=== PATIENT | male | born 1955 ===

== ENCOUNTER 2022-11-20 16:51 | Inpatient (IN) | payer OTHER ==
[~2022-11-20] VITALS: Ht 193 cm; Wt 107.1 kg
--- NOTE | 2022-11-20 20:12 | NUR ---
HOSPITALIST NOTIFIED OF PT ARRIVAL TO UNIT.
[2022-11-21 04:47] LABS: Hematocrit 32.9 % (37.0-53.0); Mean Corpuscular HGB 29.4 pg (26.0-34.0); Mean Corpuscular HGB Conc 33.4 g/dL (31.5-36.5); Mean Corpuscular Volume 88 fL (80-100); Mean Platelet Volume 9.8 fL (9.1-12.4); Platelet Count 520 K/mm3 (150-400); RDW Coefficient Variation 14.2 % (11.7-14.2); RDW Standard Deviation 45.5 fL (35.1-46.3); Red Blood Cell Count 3.74 M/mm3 (4.30-5.90)
[2022-11-21 05:36] LABS: BAND PERCENT MAN 10 % (0-8); BASOPHILS PERCENT MAN 0 % (0-2); EOSINOPHILS PERCENT MAN 0 % (0-6); LYMPHOCYTES ABSOLUTE MAN 0.75 K/mm3 (0.84-5.20); LYMPHOCYTES PERCENT MAN 4 % (21-46); MONOCYTES ABSOLUTE MAN 0.56 K/mm3 (0.16-1.47); MONOCYTES PERCENT MAN 3 % (4-13); MYELOCYTE ABSOLUTE MAN 0.18 K/mm3 (0.00-0.00); MYELOCYTE PERCENT MAN 1 % (0-0); NEUTROPHILS ABSOLUTE MAN 17.38 K/mm3 (1.96-9.15); SEG NEUTROPHILS PERCENT MAN 82 % (41-73); TOTAL CELLS COUNTED 100
[2022-11-21 05:42] LABS: Albumin, Blood 1.9 g/dL (3.4-5.0); Albumin/Globulin Ratio 0.3 (0.8-1.8); Bilirubin, Total 0.9 mg/dL (0.1-1.0); Bun/Creatinine Ratio 51.9 (12.0-20.0); Calcium, Blood 9.5 mg/dL (8.5-10.1); Creatinine, Blood 1.54 mg/dL (0.60-1.20); Globulin, Blood 5.8 g/dL (2.2-4.0); Potassium, Blood 3.5 mmol/L (3.5-5.5); Total Protein, Blood 7.7 g/dL (6.4-8.2)
--- NOTE | 2022-11-21 07:30 | NUR ---
AM ASSESSMENT PT IN HIS BED AFTER GETTING REPORT FROM NOC RN. PT APPEARS COMFORTABLE AT THAT TIME BUT DOES NOT ANSWER QUESTIONS APPROPRIATELY. PER NOC RN, PODIETRY CONSULT ATTEMPTED TO BE CALLED IN BUT WAS TOLD TO CALL THEIR OFFICE DIRECTLY. WILL CONTACT [employer] MACHINE TENDER PODIETRY TO COMPLETE CONSULT.
--- NOTE | 2022-11-21 07:36 | NUR ---
SHIFT SUMMARY PT A&O X2-3, AND FORGETFUL. BED ALARM ON. MEDICATING FOR PAIN PER EMAR. PT PULLED IV ACCESS X2. VOIDING WITH BEDSIDE URINAL. NPO SINCE 0000. PICTURE TAKEN OF WOUND TO R FOOT AND PLACE IN CHART. CALL LIGHT WITHIN REACH, BUT PT HAS NOT BEEN USING IT.
--- NOTE | 2022-11-21 09:00 | NUR ---
CONFUSION PT IS CONFUSED, ANSWERS SOME QUESTIONS CORRECTLY SUCH NAME AND BUT GIVE NONSENSICAL ANSWERS TO OTHER QUESTIONS. HE IS HAVING VISUAL HALLUCINATIONS AT THIS TIME ASKING "WHY AM I WRAPPED UP IN THIS TOY STRING" WHILE GRABBING AT AIR. PT IS INSISTING ON AMBULATING TO THE BATHROOM, ATTEMPTED TO GET PATIENT TO AGREE TO USE BSC BUT WAS NOT SUCCESSFUL, PT WAS ABLE TO AMBULATE TO THE BATHROOM WITH 2 ASSIST MAINING NEEDING HELP STANDING UP FROM THE BED AND AGAIN STANDING UP OFF THE TOILET. PT ABLE TO VOID UNMEASURED. PT BACK IN BED WITH BED ALARM ON FOR SAFETY.
--- NOTE | 2022-11-21 09:30 | NUR ---
PODIETRY CONSULT DISCUSSED PT CONDITION WITH CRITICAL CARE RN PODIETRY WHO WAS ABLE TO GIVE IMAGING ORDERS AND CAME IN FOR AN ASSESSMENT. REQUESTING ORTHO CONSULT AND ADDITIONAL IMAGING AT THIS TIME.
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
--- NOTE | 2022-11-21 21:16 | NUR ---
BELINGINGS GLASSES, HEARING AIDS, CELL PHONE, AND PAPER WORK TAKEN TO ICU 15. ICU NURSE NOTIFIED OF PTS BELONGING.
[2022-11-22 03:51] LABS: Hematocrit 30.2 % (37.0-53.0); Mean Corpuscular HGB 29.8 pg (26.0-34.0); Mean Corpuscular HGB Conc 33.1 g/dL (31.5-36.5); Mean Corpuscular Volume 90 fL (80-100); Mean Platelet Volume 9.5 fL (9.1-12.4); Platelet Count 558 K/mm3 (150-400); RDW Coefficient Variation 14.5 % (11.7-14.2); RDW Standard Deviation 47.6 fL (35.1-46.3); Red Blood Cell Count 3.36 M/mm3 (4.30-5.90)
--- NOTE | 2022-11-22 03:55 | NUR ---
PT CONTINUES TO BE HYPERTENSIVE DESPITE PRN MEDICATIONS BEING GIVEN. DR LEWIS NOTIFIED. ORDERS GIVEN. SEE EMAR
[2022-11-22 04:25] LABS: Bun/Creatinine Ratio 51.5 (12.0-20.0); Calcium, Blood 8.9 mg/dL (8.5-10.1); Creatinine, Blood 1.3 mg/dL (0.60-1.20)
[2022-11-22 05:52] LABS: BAND PERCENT MAN 3 % (0-8); BASOPHILS PERCENT MAN 0 % (0-2); EOSINOPHILS PERCENT MAN 0 % (0-6); LYMPHOCYTES ABSOLUTE MAN 2.18 K/mm3 (0.84-5.20); LYMPHOCYTES PERCENT MAN 12 % (21-46); METAMYELOCYTE ABSOLUTE MAN 0.18 K/mm3 (0.00-0.00); METAMYELOCYTE PERCENT MAN 1 % (0-0); MONOCYTES PERCENT MAN 0 % (4-13); MYELOCYTE ABSOLUTE MAN 0.18 K/mm3 (0.00-0.00); MYELOCYTE PERCENT MAN 1 % (0-0); NEUTROPHILS ABSOLUTE MAN 15.65 K/mm3 (1.96-9.15); SEG NEUTROPHILS PERCENT MAN 83 % (41-73); TOTAL CELLS COUNTED 100
[2022-11-22 06:01] LABS: Source, Urine Foley catheter
[2022-11-22 06:05] LABS: Appearance, Urine Clear (Clear); Bilirubin, Urine Neg (Neg); Blood, Urine 4+ (Neg); Color, Urine Yellow (P-Yellow); Glucose Qualitative, Urine 3+ (Neg); Ketones, Urine 1+ (Neg); Leukocyte Esterase, Urine 1+ (Neg); Nitrite, Urine Neg (Neg); Protein, Urine 2+ (Neg); Specific Gravity, Urine 1.015 (1.003-1.022); Urobilinogen, Urine NORM (Normal)
[2022-11-22 06:28] LABS: Amorphous Light (0-Heavy); Bacteria Few /hpf; Granular Casts 0-2 /lpf (0); Hyaline Casts 0-2 /lpf (0-2); Squamous Epithelial Cells Few /hpf (Few)
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
--- NOTE | 2022-11-22 16:21 | NUR ---
JUST CAME BY TO SEE PATIENT, THE MINERVA FROM THE RIGHT LEG WOUND WAS REMOVED WITHOUT INCIDENT. PT MADE NO RECOGNITION OF DRAIN BEING REMOVED. IV STARTED IN LEFT FOREARM. PT STILL UNABLE TO ANSWER TO HIS LOCATION.
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
--- NOTE | 2022-11-22 18:31 | NUR ---
AL HAD SOME FRIENDS FROM THE [facility], HIS "BEST FRIENDS" THE ONES HE SEES NEARLY EVERY DAY STOP IN TO VISIT. HE PERKED UP A BIT, HE WAS MORE ALERT, STRONGER VOICED IN RESPONDING TO THEM. THEY BROUGHT A PICKING TABLE WORKER FOR HIS PHONE, ALSO POINTED OUT THAT HE HAS HEARING AIDS AND PICKING TABLE WORKER IN HIS BAG. THAT THIS MAY HELP WITH HIS COMMUNICATION. HE IS BEING MORE COOPERATIVE AND WAS ABLE TO TAKE IN A BIT MORE OF HIS DINNER THAN HIS PREVIOUS MEALS. HE REMAINS WITH LOW GRADE FEVER AT 99.9 TEMPANIC, HIS SKIN IS WARM TO THE TOUCH, HE CONTINUES TO BE RESTLESS AND FIDGETY. NS @ 75ML/HR CONTINUES.
--- NOTE | 2022-11-22 19:37 | NUR ---
ASSUMED CARE OF PT AT 1900 PT RESTING IN BED CONSTANTLY FIDGETING AND PULLING IN CORDS. A/O X1, KNOWS SELF ONLY. RESP- SPO2 >92% ON RA. LSCBT WITH DIMINISHED BASES. CARDIAC- HYPTERTENSIVE SBP 150'S, HR 110'S. GI,- SHARPE DRAINING TO GRAVITY WITH CLEAR/YELLOW URINE. NS RUNNING AT 75 MLS/HR TO RIGHT UPPER ARM. NO OTHER IV'S AT THIS TIME D/T REPORTS OF PT PULLING OUT ALL OTHER LINES. SEE FULL ASSESSMENT FOR FURTHER INFORMATION.
[2022-11-23 03:17] LABS: Hematocrit 31.2 % (37.0-53.0); Hemoglobin 10.3 g/dL (13.5-17.5); Mean Corpuscular HGB 29.7 pg (26.0-34.0); Mean Corpuscular Volume 90 fL (80-100); Mean Platelet Volume 9.4 fL (9.1-12.4); Platelet Count 654 K/mm3 (150-400); RDW Coefficient Variation 14.7 % (11.7-14.2); RDW Standard Deviation 48.5 fL (35.1-46.3); Red Blood Cell Count 3.47 M/mm3 (4.30-5.90); White Blood Cell Count 20.44 K/mm3 (4.00-11.30)
[2022-11-23 03:38] LABS: Albumin, Blood 1.5 g/dL (3.4-5.0); Albumin/Globulin Ratio 0.2 (0.8-1.8); Bilirubin, Total 0.9 mg/dL (0.1-1.0); Calcium, Blood 8.6 mg/dL (8.5-10.1); Creatinine, Blood 0.9 mg/dL (0.60-1.20); Globulin, Blood 6.4 g/dL (2.2-4.0); Potassium, Blood 3.7 mmol/L (3.5-5.5); Total Protein, Blood 7.9 g/dL (6.4-8.2)
[2022-11-23 03:47] LABS: BAND PERCENT MAN 5 % (0-8); BASOPHILS PERCENT MAN 0 % (0-2); EOSINOPHILS PERCENT MAN 0 % (0-6); LYMPHOCYTES ABSOLUTE MAN 1.43 K/mm3 (0.84-5.20); LYMPHOCYTES PERCENT MAN 7 % (21-46); METAMYELOCYTE PERCENT MAN 1 % (0-0); MONOCYTES ABSOLUTE MAN 0.61 K/mm3 (0.16-1.47); MONOCYTES PERCENT MAN 3 % (4-13); MYELOCYTE ABSOLUTE MAN 1.02 K/mm3 (0.00-0.00); MYELOCYTE PERCENT MAN 5 % (0-0); NEUTROPHILS ABSOLUTE MAN 17.16 K/mm3 (1.96-9.15); SEG NEUTROPHILS PERCENT MAN 79 % (41-73); TOTAL CELLS COUNTED 100
--- NOTE | 2022-11-23 05:21 | NUR ---
END OF SHIFT SUMMARY PT DID NOT REST MOST OF THE NIGHT. CONFUSED AND PULLING AT LINES CONSTANTLY. A/O X1, SELF ONLY. RESP- SPO2 >93% ON RA. COUGH SOUNDS WET WHEN LISTENING FROM FAR AWAY. LUNG SOUNDS CLEAR WITH DIM BASES. PT TRIES TO CLEAR BROCHIAL AREA REPEATEDLY, BUT IS WEAK COUGH. CARDIAC- SINUS RHYTHM WITH HR 90'S. SBP 170'S MOST OF THE NIGHT. MEDICATED PER EMAR WITH LITTLE RESULTS. GI,- SHARPE DRAINING TO GRAVITY WITH 2000MLS OF YELLOW/CLEAR URINE OUT THIS SHIFT. NO BM THIS SHIFT. WILL CONTINUE TO MONITOR UNTIL AM RN SHIFT REPORT GIVEN.
--- NOTE | 2022-11-23 09:23 | NUR ---
AL HAS BEEN TRYING TO SLEEP MOST OF THE MORNING, DIDN'T TAKE MUCH FOR BREAK- FAST, TRYING TO GET NEPRO WITH JANAE DOWN HIM. HE IS TRYING TO ANSWER THE DRS WHEN THEY ROUND. HE DID SAY HE "WOULD LIKE TO GET OUT OF HERE FOR A WHILE". IV FLUIDS CONTINUE, ANTIBIOTICS INFUSING, SHARPE WITH GOOD OUTPUT, LEFT FOOT WARM AND PULSE PRESENT. RIGHT STUMP COVERED IN STOCKINETTE.
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
--- NOTE | 2022-11-23 12:55 | NUR ---
OT CAME TO WORK WITH RENATA, HE HAD A DIFFICULT TIME STAYING FOCUSED AND FOL- LOWING DIRECTIONS, HE WAS EXHAUSTED AFTER STANDING UP. HE REMAINS IN THE RE- CLINER, ONLY TAKING IN ABOUT 15% OF HIS LUNCH. HE CONTINUES TO HAVE A COUGH, NON-PRODUCTIVE. COMPLAINS OF BEING COLD. WANTING TO "GET OUT OF HERE".
--- NOTE | 2022-11-23 15:36 | NUR ---
P/T CARLA CAME TO WORK WITH RENATA AND WAS NOT WELL RECEIVED. RENATA SEEMS MORE EXASPERATED AND UPSET THIS AFTERNOON. I ASKED THE CARE COMPANION TO SPEAK WITH HIM.
--- NOTE | 2022-11-23 15:41 | NUR ---
"Spiritual Care | Nurse Referral Pt. is awake in a recliner, and welcomes my visit. Pt. is unsettled by his condition. With patient theraputic listening and a calming presence Pt. eventually displays evidence of trust. Pt. verbalizes that his family is all gone. Listen with empathy, and a pastoral presence. Normalized the patient experience and encouraged the Pt. to consider following through with his PT. The Pt. displayed evidence of understanding. The Pt. declined any further specific spiritual care, but verbalized gratitude for the visit, and invited this 1st pressman on web press to return."
--- NOTE | 2022-11-23 15:47 | NUR ---
SOME OF AL'S FRIENDS FROM [place] CAME TO VISIT AND BROUGHT HIM SOME CLOTHING, SOME SWEATS, UNDERPANTS, T-SHIRTS, SOCKS. HE HAD COME OVER FROM [place] W/O ANY BELONGINGS.
--- NOTE | 2022-11-23 18:22 | NUR ---
FED RENATA HIS DINNER, TAKING IN ABOUT 35%. DRINKING HIS MILK AND WATER INDE- PENDENTLY. ASKED TO GO BACK TO BED. 3 PERSON TRANSFER VIA LIFT BACK TO BED. C/O BEING COLD. AL FELL ASLEEP AND HAS BEEN SLEEPING QUIETLY SINCE. BP REMAINS ELEVATED AT TIMES, ORAL MEDICATIONS GIVEN AND TOLERATED WELL. WILL CONTINUE TO ENCOURAGE WORKING WITH PT/OT, NUTRITION.
--- NOTE | 2022-11-23 22:21 | NUR ---
ASSUMPTION OF CARE/ASSESSMENT: ASSUMED CARE OF PT AT 1900. PT IS ASLEEP IN BED, WAKES TO VERBAL STIMULI. PT IS ABLE TO STATE NAME/SOB ACCURATELY BUT NOT ABLE TO ANSWER ANY OTHER ORIENTING QUESTIONS AT THIS TIME. PT IS ON RA WITH SPO2 94< AND DRY, WEAK COUGH NOTED. PT APPEARS TO BE TAKING SHALLOW BREATHS AND RR 20-22. PT SBP 170'S, NO C/O CHEST PAIN. PT HAS OBESE, NON-TENDER ABD, HYPOACTIVE BS IN ALL QUADRANTS. PT HAS SHARPE CATH IN PLACE THAT IS DRAINING TO GRAVITY. ATTEMPTED TO PLACE PT ON BEDPAN AFTER PT WAS OBSERVED TO BE TOO WEAK TO PIVOT TO BEDSIDE COMMODE WITH THREE STAFF MEMBERS; PT UNABLE TO HAVE BOWEL MOVEMENT ON BEDPAN. PPP X 3, NO PEDAL PULSE IN R. LG R/T RIGHT BKA. PT HAS DECREASED BED MOBILITY AND IS ONLY ABLE TO MOVE RLE SLIGHTLY; REQUIRING MODERATE ASSISTANCE WITH TURNS. PT FEBRILE WITH TEMP AT 100.3; BLANKETS REMOVED AND WILL CONTINUE TO ASSESS. PT TOLERATING PO INTAKE AT THIS TIME. BED LOWERED, CALL LIGHT IN REACH, WILL CONTINUE TO MONITOR UNTIL ONCOMING RN ARRIVES.
[2022-11-24 04:08] LABS: BASOPHILS ABSOLUTE AUTO 0.06 K/mm3 (0.00-0.23); BASOPHILS PERCENT AUTO 0 % (0-2); EOSINOPHILS ABSOLUTE AUTO 0.03 K/mm3 (0.00-0.68); EOSINOPHILS PERCENT AUTO 0 % (0-6); Hematocrit 28.6 % (37.0-53.0); Hemoglobin 9.4 g/dL (13.5-17.5); IMMATURE GRAN ABSOLUTE AUTO 0.79 K/mm3 (0.00-0.10); IMMATURE GRAN PERCENT AUTO 5 % (0-1); LYMPHOCYTES ABSOLUTE AUTO 1.29 K/mm3 (0.84-5.20); LYMPHOCYTES PERCENT AUTO 8 % (21-46); MONOCYTES ABSOLUTE AUTO 0.74 K/mm3 (0.16-1.47); MONOCYTES PERCENT AUTO 5 % (4-13); Mean Corpuscular HGB 29.7 pg (26.0-34.0); Mean Corpuscular HGB Conc 32.9 g/dL (31.5-36.5); Mean Corpuscular Volume 90 fL (80-100); Mean Platelet Volume 9.4 fL (9.1-12.4); NEUTROPHILS ABSOLUTE AUTO 13.01 K/mm3 (1.96-9.15); NEUTROPHILS PERCENT AUTO 82 % (41-73); Platelet Count 600 K/mm3 (150-400); RDW Coefficient Variation 14.6 % (11.7-14.2); RDW Standard Deviation 48.6 fL (35.1-46.3); Red Blood Cell Count 3.17 M/mm3 (4.30-5.90); White Blood Cell Count 15.92 K/mm3 (4.00-11.30)
[2022-11-24 04:24] LABS: Bun/Creatinine Ratio 36.5 (12.0-20.0); Calcium, Blood 8.3 mg/dL (8.5-10.1); Creatinine, Blood 0.8 mg/dL (0.60-1.20); Potassium, Blood 3.1 mmol/L (3.5-5.5)
--- NOTE | 2022-11-24 05:58 | NUR ---
SHIFT SUMMARY: NO ACUTE CHANGES OVERNIGHT. PT NEURO STATUS AND SPEECH SLOWLY IMPROVED THROUGHOUT THE SHIFT. PT SLEPT FOR THE MAJORITY OF THE NIGHT. GOOD URINE OUTPUT FROM SHARPE. LOW POTASSIUM AT AM LAB DRAW; 40 MEQ KCL GIVEN ORALLY. BED LOWERED, CALL LIGHT IN REACH, WILL CONTINUE TO MONITOR.
--- NOTE | 2022-11-24 11:55 | NUR ---
TRANSFER TO MEDICAL REPORT GIVEN VIA PHONE. ALL QUESTIONS ANSWERED. PT TAKEN ROOM 354 VIA BED. ALL PT BELONGINGS AND MEDS SENT WITH PT.
--- NOTE | 2022-11-24 14:23 | NUR ---
PATIENT IS ALERT AND RESPONDS TO VERBAL STIMULI. HE IS CONFUSED AT TIMES ATLEAST IT TAKES HIM A LITTLE BIT TO FIGURE OUT WHERE HE IS AND WHY HE IS HERE. PATIENT JUST TOLD THIS RN THAT HE'S NOT IN [place] BUT WHEN PRESSED ON WHERE HE IS IF HE'S NOT IN [place] HE SAID THAT HE IS IN [place]. RIGHT BKA INSCISION SITE HAS NO REDNESS OR SIGNIFICANT DRAINAGE. PATIENT'S CHEST APPEARED DIAPHORETIC, PATIENT STATED HE FELT WARM. ORAL TEMPERATURE SHOWED 98.3 DEGREES FARENHEIGHT.
--- NOTE | 2022-11-25 04:48 | NUR ---
SHIFT SUMMARY NOC PT IS A/O X 2-3. PT RESPONDS TO VERBAL AND TACTILE STIMULI. HE IS CONFUSED/FORGETFUL AT TIMES AND TAKES A FEW MOMENTS TO REORIENT TO WHERE AND WHY HE IS IN HOSPITAL. HE IS P/O DAY 4 RBKA WHICH HAS NO S/S OF INFECTION. DRESSING WAS CHANGED BY DR GIFFORD DURING DAY. PT IS ON ABX FOR TX OF INFECTION. PT ON TELE AT SINUS RHYTHM @ 90 BPM. PT HAS SHARPE DRAINING HIGH OUTPUT OF CLEAR YELLOW URINE. PT HAS NS INFUSING @ 75 MLS. PT HAD LOW POTASSIUM 3.1 AND MG 1.4 WITH REPLACEMENTS. AWAITING AM LABS FOR FURTHER ACTION. PT IS CURRENTLY RESTING WITH BED IN LOWEST POSITION AND CALL LIGHT WITHIN REACH. TM.
[2022-11-25 05:01] LABS: BASOPHILS ABSOLUTE AUTO 0.04 K/mm3 (0.00-0.23); BASOPHILS PERCENT AUTO 0 % (0-2); EOSINOPHILS ABSOLUTE AUTO 0.06 K/mm3 (0.00-0.68); EOSINOPHILS PERCENT AUTO 0 % (0-6); Hematocrit 30.1 % (37.0-53.0); Hemoglobin 9.7 g/dL (13.5-17.5); IMMATURE GRAN ABSOLUTE AUTO 0.56 K/mm3 (0.00-0.10); IMMATURE GRAN PERCENT AUTO 4 % (0-1); LYMPHOCYTES ABSOLUTE AUTO 1.34 K/mm3 (0.84-5.20); LYMPHOCYTES PERCENT AUTO 10 % (21-46); MONOCYTES ABSOLUTE AUTO 0.68 K/mm3 (0.16-1.47); MONOCYTES PERCENT AUTO 5 % (4-13); Mean Corpuscular HGB 29.8 pg (26.0-34.0); Mean Corpuscular HGB Conc 32.2 g/dL (31.5-36.5); Mean Corpuscular Volume 92 fL (80-100); Mean Platelet Volume 9.6 fL (9.1-12.4); NEUTROPHILS ABSOLUTE AUTO 10.89 K/mm3 (1.96-9.15); NEUTROPHILS PERCENT AUTO 80 % (41-73); Platelet Count 608 K/mm3 (150-400); RDW Coefficient Variation 14.3 % (11.7-14.2); RDW Standard Deviation 48.7 fL (35.1-46.3); Red Blood Cell Count 3.26 M/mm3 (4.30-5.90); White Blood Cell Count 13.57 K/mm3 (4.00-11.30)
[2022-11-25 05:46] LABS: Bun/Creatinine Ratio 27.5 (12.0-20.0); Calcium, Blood 8.2 mg/dL (8.5-10.1); Creatinine, Blood 0.84 mg/dL (0.60-1.20); Potassium, Blood 3.4 mmol/L (3.5-5.5)
--- NOTE | 2022-11-25 17:58 | NUR ---
SHIFT SUMMARY: NO ACUTE EVENTS. GOT IN TO RECLINER FOR DINNER USING CEILING LIFT. IS REQUESTING TO USE BR INSTEAD OF URINAL/BEDPAN; WHEN ASKED HOW WE WOULD DO THAT HE STATED "WITH MY ARMS." DOES NOT REALIZE THAT HE WILL NEED EXTENSIVE THERAPY AND TRAINING ON TRANSFERS. TELEMETRY DISCONTINUED WELL SHARPE. MEDICATED FOR PAIN PER PATEINT REQUEST. LUNG SOUNDS COARSE THROUGHOUT, MOIST. POTASSIUM REPLACED. BLOOD CULTURES NGTD.
--- NOTE | 2022-11-26 05:38 | NUR ---
SHIFT SUMMARY AOX2-SELF, PLACE. FORGETFUL & MORE CONFUSED @HS THEN THIS MORNING. PT WAS UNABLE TO TELL ME WHY HE WAS IN THE HOSPITAL LAST NIGHT BUT COULD TELL ME THIS AM IT WAS BECAUSE OF HIS LEG. VSS. POD 5-R BKA, DENIES ANY PAIN IN STUMP. DRESSING IS C/D/I, NO DRAINAGE NOTED. DENIES N/V OR DYSPNEA. DOES REPORT 10/10 LOW BACK PAIN c REPOSITIONING, MEDICATED 1X c 5MG OXYCODONE & PT ABLE TO REST WELL T/O NIGHT. SHARPE REMOVED LAST NIGHT JUST BEFORE SHIFT CHANGE, PT UNABLE TO VOID IN ATTENDS OR URINAL T/O NIGHT. BLADDER SCAN THIS AM SHOWED >1041ML, INFORMED DR LEWIS & HE ORDERED A 1x STRAIGHT CATH, GOT 1025ML DARK ORANGE URINE. CALL LIGHT & BED ALARM IN PLACE. WILL MONITOR.
[2022-11-26 06:45] LABS: BASOPHILS ABSOLUTE AUTO 0.03 K/mm3 (0.00-0.23); BASOPHILS PERCENT AUTO 0 % (0-2); EOSINOPHILS ABSOLUTE AUTO 0.07 K/mm3 (0.00-0.68); EOSINOPHILS PERCENT AUTO 1 % (0-6); Hematocrit 28.8 % (37.0-53.0); Hemoglobin 9.3 g/dL (13.5-17.5); IMMATURE GRAN ABSOLUTE AUTO 0.29 K/mm3 (0.00-0.10); IMMATURE GRAN PERCENT AUTO 3 % (0-1); LYMPHOCYTES ABSOLUTE AUTO 1.59 K/mm3 (0.84-5.20); LYMPHOCYTES PERCENT AUTO 15 % (21-46); MONOCYTES ABSOLUTE AUTO 0.59 K/mm3 (0.16-1.47); MONOCYTES PERCENT AUTO 6 % (4-13); Mean Corpuscular HGB 29.6 pg (26.0-34.0); Mean Corpuscular HGB Conc 32.3 g/dL (31.5-36.5); Mean Corpuscular Volume 92 fL (80-100); Mean Platelet Volume 9.5 fL (9.1-12.4); NEUTROPHILS ABSOLUTE AUTO 7.86 K/mm3 (1.96-9.15); NEUTROPHILS PERCENT AUTO 75 % (41-73); Platelet Count 550 K/mm3 (150-400); RDW Coefficient Variation 14.3 % (11.7-14.2); Red Blood Cell Count 3.14 M/mm3 (4.30-5.90); White Blood Cell Count 10.43 K/mm3 (4.00-11.30)
[2022-11-26 07:01] LABS: Bun/Creatinine Ratio 30.8 (12.0-20.0); Calcium, Blood 8.4 mg/dL (8.5-10.1); Creatinine, Blood 0.81 mg/dL (0.60-1.20); Potassium, Blood 3.5 mmol/L (3.5-5.5)
--- NOTE | 2022-11-26 18:56 | NUR ---
SHIFT SUMMARY: NO ACUTE EVENTS. POD 5 S/P R BKA FROM OSTEOMYELITITS AND GANGRENE OF R FOOT. DR. GIFFORD SAW PT AND CHANGED DRESSING TODAY. C/O CHRONIC LOW BACK PAIN, MEDICATED PER EMAR, MAKES BED MOBILITY DIFFICULT FOR HIM. UNABLE TO VOID SPONTANEOUSLY IN URINAL; BLADDER SCAN SHOWED 600 ML IN BLADDER, STRAIGHT CATH X 1 FOR 550 ML CLEAR CONCENTRATED YELLOW URINE. STARTED ON TAMSULOSIN AND METOPROLOL THIS EVENING. APPETITE GOOD.
[2022-11-26] MEDS ORDERED: ZESTRIL40 M1 PO (22:06)
[2022-11-26] MEDS ORDERED: GLUCOPHAGE1000 M1 PO (22:06)
[2022-11-26] MEDS ORDERED: BACTRIM DS TAB1 EAC6 PO (22:07)
[2022-11-26] MEDS ORDERED: DOXY100 PO (22:10)
[2022-11-26] MEDS ORDERED: INSULIN 70/30 SC (22:10)
[2022-11-26] MEDS ORDERED: PREDNISOLONE ACE5 ML BOTHEYES (22:12)
[2022-11-26] MEDS ORDERED: SILDENAFIL CIT100 MG PO (22:13)
[2022-11-26] MEDS ORDERED: SUMA6I SC (22:14)
[2022-11-26] MEDS ORDERED: TRAZ100 PO (22:14)
[2022-11-26] MEDS ORDERED: BETASEPT118 M7 TOP (22:16)
[2022-11-26] MEDS ORDERED: TIMO.5OPSO BOTHEYES (22:16)
--- NOTE | 2022-11-27 00:45 | NUR ---
PT HAS BEEN VOIDING APPROX 100-300MLS AT A TIME AND HAS HAD A COUPLE EPISODES OF URINARY INCONTINENCE W/ATTENDS CHANGED PRN BUT HE STILL C/O LOWER ABDO DISCOMFORT AND TENDERNESS WHEN STAFF PALPATE BLADDER. HE IS UNABLE TO DISSOCIATE WHETHER SENSATION IS BOWEL OR BLADDER SO ATTEMPTED TO USE BEDPAN W/O SUCCESS. BLADDER SCAN PERFORMED AND SHOWED >1000 MLS RETAINED JUST AFTER VOIDING 400 MLS. MADE AWARE W/INSTRUCTION RECIEVED TO STRAIGHT CATH NOW THEN HAVE DAY MD REEVALUATE POSSIBLE NEED FOR INDWELLING CATH IF RETENTION ISSUES PERSIST. 1ST DOSE FLOMAX WAS RECIEVED ON DAY SHIFT. ST CATH PERFORMED W/14FR COUDE AND STERILE TECHNIQUE MAINTAINED. APPROX 110O MLS URINE OUTPUT OBTAINED THUS FAR AND CATH IS STILL DRAINING BUT PT REPORTS RELIEF IN ABDO DISCOMFORT. WCTM FOR ADDITIONAL S/S RETENTION AND NOTIFY MD NEEDED.
--- NOTE | 2022-11-27 02:05 | NUR ---
PT'S ST.CATH WAS CONNECTED TO A DRAINAGE BAG D/T PT NOT WANTING IT REMOVED UNTIL DISCOMFORT TO ABDO WAS FULLY RESOLVED. IT ALSO CONT'D TO PUT OUT A SIGNIFICANT AMT OF URINE SO WAS LEFT IN PLACE FOR APPROX 1.5 HOURS WHILE HIS BLADDER EMPTIED. WCTM FOR S/S RETENTION.
--- NOTE | 2022-11-27 06:28 | NUR ---
SUMMARY: PT A/OX3 BUT IS FORGETFUL AT TIMES AND OCCASIONALLY MAKES BIZARRE COMMENTS SEEMINGLY UNRELATED TO TOPIC OF CURRENT CONVERSATION. REMINDERS PROVIDED AND CLARIFICATION OBTAINED PRN. BED ALARM ON FOR POSSIBLE CONFUSION AND/OR IMPULSIVITY THOUGH PT MADE NO ATTEMPTS OOB THIS SHIFT. HE'S POD 6 FOR S/P R.BKA W/R.STUMP DX AND SOCK INTACT, DX CHANGED BY 11/26/22. LEGS KEPT ELEVATED ON PILLOWS FOR SLIGHT SWELLING. BED MOBILITY REMAINS DIFFICULT D/T CHRONIC SEVERE BACK PAIN W/OXYCODONE RECIEVED PER EMAR FOR TOLERABLE RELIEF. HE VOIDED SPONTANEOUSLY AND HAD URINARY INCONTINENCE AT BEGGINING OF SHIFT BUT REPORTED SIGNFICANT LOWER ABDO DISCOMFORT SO BLADDER SCAN WAS PERFORMED. >1000MLS RETAINED POST VOID AND ST.CATH WAS RX'D AND PERFORMED. CATH WAS LEFT IN PLACE FOR APPROX 1.5 HOURS PER PT REQUEST TO RELIEVE DISTENSION/DISCOMFORT AND D/T LARGE AMT OF GRADUAL UO. HE HASN'T VOIDED SINCE EMPTYING BLADDER OF APPROX 1700ML CATHETER OUTPUT. FLOMAX STARTED ON DAY SHIFT BUT DAY MD MAY NEED TO RE-EVALUATE POSSIBLE NEED FOR IUC. NO ACUTE CHANGES, VSS/AFEBRILE. WCTM AND REPORT TO DAY RN.
--- NOTE | 2022-11-27 20:06 | NUR ---
SHIFT SUMMARY PT A&O X 4 THOUGH CAN BE FORGETFUL, REORIENTS WELL. VSS. JESÚS DRSYUNIOR CHANGED BY DR. GIFFORD. REMAINS C/D/I. PT PARTICIPATED WITH PT TODAY. MEDICATED FOR C/O BACK PAIN PER EMAR. USES URINAL INDEPENDENTLY. AT END OF SHIFT BLADDER SCANNED FOR >999MLS REMAIN IN BLADDER POST VOID. REPORTED TO NOC SHIFT RN. PT LIKELY NEEDS AN INDWELLING CATH. IV INTACT & PATENT. IS PLEASANT & COOPERATIVE WITH ALL CARE. WILL LIKELY NEED REHAB UPON DC.
--- NOTE | 2022-11-27 22:40 | NUR ---
PT VOIDED APPROX 200 MLS AND HAD SM.URINARY INCONTINENCE BUT CONT'D TO REPORT LOWER ABDO DISCOMFORT AND DISTENSION. BLADDER SCAN PERFORMED AND PVR SHOWED >999 MLS RETAINED. HE'S BEEN RETAINING AND UNABLE TO FULLY EMPTY BLADDER DESPITE COMMENCING FLOMAX AND VOIDING SM.AMOUNTS. INTERMITTENT ST.CATHS HAVE BEEN PERFORMED SINCE POST OP SHARPE WAS DC'D 11/25/22. MADE AWARE AND INSTRUCTED TO PLACE INDWELLING CATHETER. 14FR COUDE WAS PLACED W/STERILE TECHNIQUE MAINTAINED AND 1825 MLS UO OBTAINED VIA SHARPE CATH. URINE SPECIMEN OBTAINED AND SENT PER PROTOCOL, AWAITING RESULTS. ATTENDS CHANGED, DIANE CARE COMPLETED, MEPILEX APPLIED TO PINK COCCYX AND PT WAS REPOSITIONED/FLOATED ON PILLOWS FOR IMPROVED COMFORT. CALL LIGHT IN REACH AND BED ALARM ON. WCTM.
[2022-11-27 22:48] LABS: Source, Urine Foley catheter
[2022-11-27 23:07] LABS: Appearance, Urine Clear (Clear); Bilirubin, Urine Neg (Neg); Blood, Urine 2+ (Neg); Color, Urine Yellow (P-Yellow); Glucose Qualitative, Urine 4+ (Neg); Ketones, Urine Neg (Neg); Leukocyte Esterase, Urine Neg (Neg); Nitrite, Urine Neg (Neg); Protein, Urine 2+ (Neg); Specific Gravity, Urine 1.015 (1.003-1.022); Urobilinogen, Urine NORM (Normal)
[2022-11-27 23:21] LABS: Bacteria Rare /hpf; Hyaline Casts 0-2 /lpf (0-2); Squamous Epithelial Cells Rare /hpf (Few); White Blood Cells, Urine 0-2 /hpf (0-5)
[2022-11-28 05:19] LABS: BASOPHILS ABSOLUTE AUTO 0.05 K/mm3 (0.00-0.23); BASOPHILS PERCENT AUTO 1 % (0-2); EOSINOPHILS ABSOLUTE AUTO 0.05 K/mm3 (0.00-0.68); EOSINOPHILS PERCENT AUTO 1 % (0-6); Hematocrit 28.8 % (37.0-53.0); Hemoglobin 9.1 g/dL (13.5-17.5); IMMATURE GRAN ABSOLUTE AUTO 0.16 K/mm3 (0.00-0.10); IMMATURE GRAN PERCENT AUTO 2 % (0-1); LYMPHOCYTES ABSOLUTE AUTO 2.29 K/mm3 (0.84-5.20); LYMPHOCYTES PERCENT AUTO 23 % (21-46); MONOCYTES ABSOLUTE AUTO 0.55 K/mm3 (0.16-1.47); MONOCYTES PERCENT AUTO 6 % (4-13); Mean Corpuscular HGB 29.2 pg (26.0-34.0); Mean Corpuscular HGB Conc 31.6 g/dL (31.5-36.5); Mean Corpuscular Volume 92 fL (80-100); Mean Platelet Volume 10.1 fL (9.1-12.4); NEUTROPHILS PERCENT AUTO 69 % (41-73); Platelet Count 598 K/mm3 (150-400); RDW Coefficient Variation 13.9 % (11.7-14.2); Red Blood Cell Count 3.12 M/mm3 (4.30-5.90)
--- NOTE | 2022-11-28 05:28 | NUR ---
SUMMARY: PT A/OX3 BUT CAN BE FORGETFUL AT TIMES AND REORIENTS QUICKLY W/REMINDERS. BED ALARM ON FOR FALL RISK AND CALL LIGHT IN REACH. SUSANAA DX AND STUMP SOCK C/D/I, CHANGED DX ON DAY SHIFT. HE CONT'D TO VOID AT TIMES T/O DAY SHIFT W/OCC URINARY INCONTINENCE BUT RETENTION/INABILITY TO EMPTY BLADDER PERSISTED. PT HAD >999MLS PVR ON BLADDER SCAN TONIGHT AFTER VOIDING 200MLS SO RX'D IUC. 14FR COUDE PLACED TO GRAVITY W/APPROX 1800MLS UO EMPTIED PER SHARPE UPON INSERTION. HE WAS MEDICATED W/PRN OXYCODONE FOR TOLERABLE RELIEF OF BACK PAIN AND TURN SCHEDULE WAS MAINTAINED. MEPILEX PLACED TO PINK COCCYX FOR SBD PREVENTION AND PILLOWS UTILIZED TO FLOAT BUTTOCKS AND BLE'S. NO ACUTE CHANGES, VSS/AFEBRILE. WCTM/REPORT TO DAY RN.
[2022-11-28 05:54] LABS: Bun/Creatinine Ratio 26.8 (12.0-20.0); Calcium, Blood 8.7 mg/dL (8.5-10.1); Creatinine, Blood 0.86 mg/dL (0.60-1.20); Potassium, Blood 3.9 mmol/L (3.5-5.5)
--- NOTE | 2022-11-28 10:56 | NUR ---
Pt. is awake in bed and welcomes my visit. Pt. is generally pleasant. Rapport is re-esteblished. Pt. seems a little unsettled by his progress, but verbalizes that he is motivated to do what he can to be able to discharge. Listen with empathy and an encouraging presence. Pt. declined any additional spiritual care, but verbalized gratitude for the visit.
[2022-11-28 17:43] LABS: Source, Urine Foley catheter
[2022-11-28 17:48] LABS: Appearance, Urine Clear (Clear); Bilirubin, Urine Neg (Neg); Blood, Urine 1+ (Neg); Color, Urine Yellow (P-Yellow); Glucose Qualitative, Urine 4+ (Neg); Ketones, Urine Neg (Neg); Leukocyte Esterase, Urine Neg (Neg); Nitrite, Urine Neg (Neg); Protein, Urine 1+ (Neg); Urobilinogen, Urine NORM (Normal)
[2022-11-28 18:10] LABS: Bacteria Few /hpf; Red Blood Cells, Urine Not Seen /hpf (0-2); Squamous Epithelial Cells Not Seen /hpf (Few)
--- NOTE | 2022-11-28 19:39 | NUR ---
SHIFT SUMMARY A&O X 4 THOUGH CAN BE FORGETFUL AND DOESN'T ALWAYS APPROPRIATELY TRACK WITH CONVERSATION. VSS. MEDICATED FOR C/O PAIN PER EMAR WITH GOOD RESULTS. F/C DRAINING YELLOW URINE. UA COLLECTED AND SENT. IV INTACT & PATENT. GOT PT UP TO RECLINER WITH LIFT. SAT UP FOR MOST OF THE AFTERNOON. PLACED BACK IN BED JUST BEFORE CHANGE OF SHIFT. APPETITE IS GOOD. JESÚS STEWART REMAINS C/D/I. CHANGED YESTERDAY BY DR. GIFFORD. IS PLEASANT & COOPERATIVE WITH ALL CARE. POSSIBLE PLAN IS LIKELY PLACEMENT UPON DC FROM HOSPITAL.
--- NOTE | 2022-11-29 04:57 | NUR ---
A&O X 4, BUT SLOW TO RESPOND TO QUESTIONS AND CAN BE FORGETFUL. MEDICATED FOR C/O PAIN EARLIER IN SHIFT WITH GOOD RESULTS. SHARPE IS DRAINING CLEAR YELLOW URINE. DRESSING REMAINS CLEAN DRY AND INTACT. PLEASANT AND COOPERATIVE WITH CARE. WILL CONTINUE TO MONITOR AND PROVIDE CARE THROUGHOUT SHIFT AND REPORT TO ONCOMING NURSE.
--- NOTE | 2022-11-29 18:08 | NUR ---
PATIENT IS ALERT WITH MOMENTS OF CONFUSION. BLOOD SUGARS HAVE BEEN HIGH, NEEDING COVERAGE. STAS HAD A BATH THIS SHIFT AND WOUND CARE WAS DONE. HE IS WAITING PLACEMENT. THERE ARE NO NEW CONCERS. HE IS STILL HAVING THE PAIN IN HIP AREA WHICH IS CHRONIC, AND RESPONDS WELL TO TREATMENTS.
--- NOTE | 2022-11-29 21:01 | NUR ---
RN NOTE-- CBG 368 CBG TAKEN AT 2034 WITH POC GLUGOSE MACHINE BY DESIREE CARBAJAL; DATA DID NOT TRANSFER. CBG 368.
--- NOTE | 2022-11-29 23:48 | NUR ---
RN NOTE--PHYSICIAN CONTACT CALL TO PERFUME MAKER/DR RETANA TO REPORT HS BLOOD SUGAR OF 368 PER ORDER/SLIDING SCALE. REVIEWED INSULIN PT RECVD P/EMAR. NO NEW ORDER AT THIS TIME.
--- NOTE | 2022-11-30 06:22 | NUR ---
TEST PREPARER SUMMAR PT A/OX2-3. FORGETFUL AND CONFUSED. SHARPE IN PLACE; PATENT, DRAINING TO GRAVIT. PT LEFT BKA; DRESSNING CDI. HS BLOOD SUGAR 368; DATA DID NOT TRANSFER TO [employer]; CALL TO TO NOTIFY; SEE NOTE. PT C/O OF BACK/HIP PAIN; MED P/EMAR. MEPILEX ON COCCYX FOR PREVENTION; SKIN INTACT. PT C/O OF PHANTOM PAIN/SENSATION IN LEFT BKA/LEG. PT WILL SOMETIMES USE CALL LIGHT; CALL LIGHT ACCESSIBLE. CONT TO REGULAR ROUNDING AND ASSESSING NEEDS. BED LOCKED/LOW.
--- NOTE | 2022-12-01 04:39 | NUR ---
MARKET NEWS REPORTER SUMMARY PT A/OX3 W/FORGEFULNESS AND CONFUSION. PT MAKING STATMENTS THAT INDICATE HE MAY BE HAVING HALLUCINATION; HEARING PEOPLE IN HIS ROOM. PT ATTEMPTED TO GET OOB IN THE NIGHT TO GO FOR WALK; PT HAS RECENT RT BKA. PT MOSTLY SLEPT WELL T/O THE NIGHT. BED ALARM IS SET. PT IS ABLE TO MAKE NEEDS KNOWN. PT IS SCRATCHING AT GROIN; PT HAS HARSH RED RASH IN GROIN AREA; APPLIED BARRIER CREAM; PT REPORTED FEELING BETTER. DRESSING TO RT BKA CDI. PT IS REPORTING PAIN IN HIPS/BACK; MED P/EMAR. SHARPE IN PLACE; PATENT/DRAINING TO GRAVITY. CALL LIGHT ACCESSIBLE. WILL CONT TO MONITOR.
--- NOTE | 2022-12-01 16:27 | NUR ---
DAYSHIFT SUMMARY Patient AOx4, cooperative w/ cares, & calls appropriately. Worked with PT & OT today. Patient did not get OOB, but was able to sit up & dangle at bedside. CBG this AM was 123, no SSI ac given. After breakfast CBG was 278, Lantus 25u given. CBG before lunch was 285, SSI ac given. nc manager helping with placement, plan is to DC to [facility]. Patient will need 5 more weeks of IV ABX therapy & PT. PICC placed today in [facility]. Patient is not leaving today, possible DC tomorrow. Will continue plan of care.
--- NOTE | 2022-12-02 04:36 | NUR ---
SHIFT SUMMARY PATIENT HAD NO ACUTE CHANGES. AXOX 3, RBKA, AND BEDREST. USES BEDPAN. SHARPE PATIENT AND DRAINING TO GRAVITY. OOB ATTEMPT X TWO. CBG 296. INCONTINENT AT TIMES. PICC SHANTEL INTACT. ABX INFUSED. DENIES CHEST PAIN, SOB, AND N/V. CALL LIGHT IN REACH. BED IN LOWEST POSITION AND ALARM ACTIVATED. WILL CONTINUE TO MONITOR UNTIL DAY SHIFT NURSE ASSUMES CARE.
[2022-12-02] MEDS ORDERED: Acetaminophen325 M1 PO (15:51)
[2022-12-02] MEDS ORDERED: AMLO5 PO (15:51)
[2022-12-02] MEDS ORDERED: DOXA4 PO (15:52)
[2022-12-02] MEDS ORDERED: JUVEN PACKET1 EAC3 PO (15:52)
[2022-12-02] MEDS ORDERED: CEFAZOLIN2 GM/50 M3 IV (15:52)
[2022-12-02] MEDS ORDERED: INSULANI ×2 (15:53→15:56)
[2022-12-02] MEDS ORDERED: LACT (15:53)
[2022-12-02] MEDS ORDERED: GABA300 PO (15:53)
[2022-12-02] MEDS ORDERED: LISI20 PO (15:56)
[2022-12-02] MEDS ORDERED: HUMALOG KW100 UNIT/1 SC (15:57)
[2022-12-02] MEDS ORDERED: OXYC5 PO (15:57)
[2022-12-02 16:43] LABS: SARS-Cov-2 (COVID-19) PCR, MMC NEGATIVE (NEGATIVE)
--- NOTE | 2022-12-02 18:22 | NUR ---
Patient stable for discharge, pending [facility] acceptance. No acute changes to patient status, today patient worked with therapy. IV Ancef administred via PICC line. Hull in place, draining to gravity. Patient used bedpan today and had medium BM. Stump dressing CDI, covered with TRINA wrap. Patient reported pain in back/leg. Oxycodone given, PRN effective. Vitals stable. COVID test for discharge disposition was negative. [facility] transport came today & transported him to [facility] at 1745. Attempted several times to call report to RN at [facility], unable to reach staff.
--- NOTE | 2022-12-02 18:33 | NUR ---
Jamal ZHOU from [facility] called for report. Handoff report given on patient.
== END 2022-12-02 17:57 | DRG 239 ==
LOC: SURS 16:51 → ICUW 19:31 → MEDS 19:31 → ICUW 11-21 21:30 → MEDS 11-24 11:57
PROVIDERS: Family Medicine; Internal Medicine; Orthopaedic Surgery; ADMIT Student in an Organized Health Care Education/Training Program
PROC: 0Y6H0Z1 Detachment at Right Lower Leg, High, Open Approach (ICD-10-PCS; principal; 2022-11-21 19:00)
DX: E11.52 Type 2 diabetes mellitus with diabetic peripheral angiopathy with gangrene (principal); A48.0 Gas gangrene; G92.8 Other toxic encephalopathy; I33.0 Acute and subacute infective endocarditis; M72.6 Necrotizing fasciitis; L03.115 Cellulitis of right lower limb; M86.8X7 Other osteomyelitis, ankle and foot; E87.1 Hypo-osmolality and hyponatremia; R78.81 Bacteremia; N17.9 Acute kidney failure, unspecified; L97.519 Non-pressure chronic ulcer of other part of right foot with unspecified severity; E11.65 Type 2 diabetes mellitus with hyperglycemia; N20.0 Calculus of kidney; E11.42 Type 2 diabetes mellitus with diabetic polyneuropathy; E11.621 Type 2 diabetes mellitus with foot ulcer; E11.69 Type 2 diabetes mellitus with other specified complication; E87.6 Hypokalemia; N18.30 Chronic kidney disease, stage 3 unspecified; E11.22 Type 2 diabetes mellitus with diabetic chronic kidney disease; D63.1 Anemia in chronic kidney disease; I12.9 Hypertensive chronic kidney disease with stage 1 through stage 4 chronic kidney disease, or unspecified chronic kidney disease; R33.8 Other retention of urine; B95.61 Methicillin susceptible Staphylococcus aureus infection as the cause of diseases classified elsewhere; Z20.822 Contact with and (suspected) exposure to COVID-19; Z87.440 Personal history of urinary (tract) infections; Z98.890 Other specified postprocedural states; Z87.19 Personal history of other diseases of the digestive system
CPT/HCPCS: 36415; 73552; 73590; 73630; 73700; 80048; 80053; 80202; 81001; 82565; 82947; 83036; 83735; 83880; 85025; 85651; 86140; 86141; 87040; 87077; 87086; 87147; 87186; 88307; 93005; 93010; 93306; 97110; 97110-CQ; 97112; 97162; 97166; 97530; 97535; A9270; C1751; J0360; J0690; J0692; J1650; J1815; J2060; J2250; J2370; J2704; J3010; J3370; J3475; J7030; J7050; U0004